=== PATIENT | female | born 1960 | race Caucasian/White ===

== ENCOUNTER 2017-06-10 12:30 | Inpatient (IN) | payer BC ==
[~2017-06-10] VITALS: Ht 157.5 cm; Wt 80.6 kg
[~2017-06-10 12:30] MED LIST: ARIP10TA15 PO; DULA0.75 SQ; FLUO40CA10 PO; FLUT100D2 INH; GLYB5TAB7 PO; LISI-600 PO; LOVA20TA2 PO; METF500T PO; NITR0.4T51 SL; OMEP40CA37 PO; SITA100T11 PO
[2017-06-10] MEDS ORDERED: NAPR-1154 PO (13:25)
[2017-06-10] MEDS ORDERED: ALBU18HF2 INH (13:25)
[2017-06-10] MEDS ORDERED: NYST30CR2 TP (13:25)
[2017-06-10 14:16] LABS: BASOPHILS % (AUTO) 0.4 % (0-1); EOSINOPHILS # (AUTO) 0.3 X10'3 (0-0.9); EOSINOPHILS % (AUTO) 3.6 % (0-6); LYMPHOCYTES # (AUTO) 1.8 X10'3 (1.1-4.8); LYMPHOCYTES % (AUTO) 22.3 % (21-51); MEAN CORPUSCULAR HEMOGLOBIN 24.5 PG (27.0-31.0); MEAN CORPUSCULAR HGB CONC 33.5 % (33.0-36.5); MEAN CORPUSCULAR VOLUME 73.2 FL (78-98); MEAN PLATELET VOLUME 8.8 FL (7.4-10.4); MONOCYTES # (AUTO) 0.4 X10'3 (0-0.9); MONOCYTES % (AUTO) 5.2 % (2-12); NEUTROPHILS # (AUTO) 5.6 X10'3 (1.8-7.7); NEUTROPHILS % (AUTO) 68.5 % (42-75); PRE OP HEMATOCRIT 32.2 % (35.0-45.0); PRE OP PLATELET COUNT 393 X10'3 (140-440); RED CELL DISTRIBUTION WIDTH 15.8 % (11.5-14.5)
[2017-06-10 14:27] LABS: PRE OP INR 0.9 INR; PRE OP PROTIME 9.4 SECONDS (9.0-12.0)
[2017-06-10 14:31] LABS: ALBUMIN 3.7 G/DL (3.4-5.0); ALBUMIN/GLOBULIN RATIO 0.8 (1.1-1.5); ALKALINE PHOSPHATASE 71 IU/L (46-116); BLOOD UREA NITROGEN 14 MG/DL (7-18); CHLORIDE 100 MMOL/L (99-107); PRE OP ALT 30 U/L (30-65); PRE OP ANION GAP 11 (8-16); PRE OP AST 15 U/L (10-37); PRE OP BILIRUB, TOTAL 0.2 MG/DL (0.0-1.0); PRE OP POTASSIUM 3.9 MMOL/L (3.4-5.1); PRE OP SODIUM 139 MMOL/L (135-145); TOTAL CARBON DIOXIDE 28.3 MMOL/L (24-32); TOTAL PROTEIN 8.1 G/DL (6.4-8.2); eGFR 86 ML/MIN
[2017-06-10 14:34] LABS: PRE OP GLUCOSE 217 MG/DL (70-104)
[2017-06-10 14:36] LABS: ABG BASE EXCESS -0.4 mmol/L (-2.0-3.0); ABG HCO3 24.6 mmol/L (22.0-26.0); ABG OXYGEN SATURATION 55.6 % (95-98); ABG PCO2 (T) 41.6 mmHg (32.0-45.0); ABG PH (T) 7.389 (7.350-7.450); ABG PO2 (T) 32.9 mmHg (83-108); ALLEN'S TEST Positive; FCOHb 0.9 % (0.5-1.5); FMetHb 0.3 % (0.3-1.12); FO2Hb 54.9 % (94-100); TOTAL HEMOGLOBIN 11.1 G/dl (12.0-16.0)
[2017-06-10 14:36] LABS: ABG BASE EXCESS -0.9 mmol/L (-2.0-3.0); ABG HCO3 22.8 mmol/L (22.0-26.0); ABG OXYGEN SATURATION 95.5 % (95-98); ABG PCO2 (T) 34.7 mmHg (32.0-45.0); ABG PH (T) 7.436 (7.350-7.450); ABG PO2 (T) 87.6 mmHg (83-108); ALLEN'S TEST Positive; FCOHb 0.6 % (0.5-1.5); FMetHb 0.3 % (0.3-1.12); FO2Hb 94.6 % (94-100); TOTAL HEMOGLOBIN 11.3 G/dl (12.0-16.0)
[2017-06-10 14:48] LABS: PRE OP HEMOGLOBIN 10.8 g/dL (12.0-16.0)
[2017-06-10 14:58] LABS: CLARITY,URINE CLEAR (Clear); COLOR,URINE STRAW (Yellow); GLUCOSE, URINE NEGATIVE (Neg); KETONES,URINE NEGATIVE (Neg); LEUKOCYTE ESTERASE ,URINE NEGATIVE (Neg); NITRITES, URINE NEGATIVE (Neg); OCCULT BLOOD,URINE NEGATIVE (Neg); PH,URINE 5.5 (4.8-8.0); PROTEIN,URINE NEGATIVE (Neg); UROBILINOGEN,URINE 0.2 E.U/dL (0.2-1.0)
[2017-06-10 15:09] LABS: UA COLLECTION TYPE CLN CATCH MIDSTREAM
[2017-06-11] MEDS ORDERED: METO25TA6 PO (12:02)
[2017-06-12] VITALS (12 sets, daily range): BP systolic 128–172; BP diastolic 64–102
[2017-06-12] MEDS ORDERED: ringers solution, lacted 1,000 ML IV SCH (05:00)
[2017-06-12] MEDS ORDERED: LORazepam 2 mg/ml vial IV ONE (05:30)
[2017-06-12] MEDS ORDERED: famotidine 20mg tablet PO ONE (05:30)
[2017-06-12] MEDS ORDERED: DOCUMENT DATE & TIME OF BETA-BLOCKER PO ONE (05:30)
[2017-06-12] MEDS ORDERED: ceFAZolin 2gm in dextrose, iso 100 ML IV ONE (05:30)
[2017-06-12] MEDS ORDERED: metoprolol tartrate 12.5mg (1/2 tablet) PO ONE (05:30)
[2017-06-12] MEDS ORDERED: dextrose 50%-water 50ml dispensing syringe IV PRN ×2 (05:30→15:40)
[2017-06-12] MEDS ORDERED: vancomycin inj 1,500 MG in normal saline 300ml IV soln IV ONE (05:30)
[2017-06-12] MEDS: insulin regular, human 100 UNITS in normal saline 100ml IV soln 99 ML IV SCH ×6 (05:30→18:10)
[2017-06-12] MEDS ORDERED: mupirocin 2% ointment 22GM TP SCH (05:30)
[2017-06-12] MEDS ORDERED: phenylephrine 10mg/ml inj IV ONE ×2 (08:00→17:22)
[2017-06-12] MEDS ORDERED: MAGNESIUM SULFATE 4 MEQ/ML (1gm/2ml) injection ONE (08:00)
[2017-06-12] MEDS ORDERED: calcium chloride 100 MG/1 ML inj IV ONE (08:00)
[2017-06-12] MEDS ORDERED: heparin 10,000 units/1 ML INJ ONE ×2 (08:00)
[2017-06-12] MEDS ORDERED: sodium bicarbonate (8.4%) 1 mEq/ml syringe ONE (08:00)
[2017-06-12] MEDS ORDERED: papaverine 30 mg/ml 2ml inj. ONE (08:00)
[2017-06-12] MEDS ORDERED: albumin (human) 25% 100 ML IV solution IV ONE (08:00)
[2017-06-12] MEDS ORDERED: heparin 1,000 units/ml 10ml inj ONE (08:00)
[2017-06-12] MEDS ORDERED: potassium acetate 2 mEq/1ml inj. IV ONE (08:00)
[2017-06-12] MEDS ORDERED: LIDOcaine 2% (20 mg/ml) 5ml cardiac syringe ONE (08:00)
[2017-06-12] MEDS ORDERED: LIDOcaine 1% (10mg/ml) 2ml vial ONE (09:58)
[2017-06-12] MEDS ORDERED: heparin 10,000 units/1 ML INJ IR ONE (10:38)
[2017-06-12] MEDS ORDERED: papaverine 30 mg/ml 2ml inj. IA ONE (10:39)
[2017-06-12] MEDS ORDERED: HYDROcodone/acetaminophen 10/325mg tab PO ONE (11:00)
[2017-06-12] MEDS ORDERED: protamine sulf. 10mg/ml inj. IV ONE (12:57)
[2017-06-12] MEDS ORDERED: isoflurane 100ml inhalation liquid IH ONE (12:57)
[2017-06-12] MEDS ORDERED: nitroGLYCERIN in D5W 50mg/250ml (Tridil) infusion IV ONE (12:57)
[2017-06-12] MEDS ORDERED: DOPamine/D5W 400mg/250ml bag IV ONE (12:57)
[2017-06-12] MEDS ORDERED: SUFENTANIL CITRATE 50 MCG/ML 2ml ampule IV ONE (13:01)
[2017-06-12] MEDS ORDERED: MIDAZolam 1mg/ml 10ml vial ONE (13:01)
[2017-06-12 13:45] LABS: ABG BASE EXCESS -2.3 mmol/L (-2.0-3.0); ABG HCO3 21.1 mmol/L (22.0-26.0); ABG OXYGEN SATURATION 98.7 % (95-98); ABG PO2 302.2 mmHg (60.0-100.0); CL (ABG) 104 mmol/L (99-107); FCOHb 0.3 % (0.5-1.5); FMetHb 0.3 % (0.3-1.12); FO2Hb 98.1 % (94-100); GLUCOSE (ABG) 148 mg/dl (70-105); IONIZED CA (ABG) 1.11 mmol/L (1.03-1.32); K (ABG) 3.7 mmol/L (3.3-5.1); NA (ABG) 136 mmol/L (135-145); TOTAL HEMOGLOBIN 9.5 G/dl (12.0-16.0)
[2017-06-12] MEDS ORDERED: tranexamic acid inj. 790 MG in normal saline 100ml IV soln 100 ML IV ONE (13:50)
[2017-06-12] MEDS ORDERED: methylPREDNISolone sod succ 1000mg vial IV ONE (13:50)
[2017-06-12 14:45] LABS: ABG HCO3 24.4 mmol/L (22.0-26.0); ABG OXYGEN SATURATION 98.7 % (95-98); ABG PCO2 38.1 mmHg (35.0-45.0); ABG PH 7.424 (7.350-7.450); ABG PO2 495.6 mmHg (60.0-100.0); CL (ABG) 101 mmol/L (99-107); FCOHb 0.3 % (0.5-1.5); FMetHb 0.2 % (0.3-1.12); FO2Hb 98.2 % (94-100); GLUCOSE (ABG) 111 mg/dl (70-105); IONIZED CA (ABG) 0.94 mmol/L (1.03-1.32); K (ABG) 3.5 mmol/L (3.3-5.1); NA (ABG) 134 mmol/L (135-145)
[2017-06-12 15:05] LABS: ABG BASE EXCESS VENOUS -1.1 mmol/L; ABG HCO3 VENOUS 24.7 mmol/L; ABG PCO2 VENOUS 46.6 mmHg; ABG PO2 VENOUS 50.2 mmHg; CL (ABG) 104 mmol/L (99-107); FCOHb VENOUS 0.6 %; FHHb VENOUS 16.6 %; FMetHb VENOUS 0.1 %; FO2Hb VENOUS 82.7 %; GLUCOSE (ABG) 158 mg/dl (70-105); IONIZED CA (ABG) 1.04 mmol/L (1.03-1.32); K (ABG) 4.6 mmol/L (3.3-5.1); NA (ABG) 134 mmol/L (135-145); TOTAL HEMOGLOBIN 8.8 G/dl (12.0-16.0)
[2017-06-12] MEDS ORDERED: ipratropium/albuterol 3ml nebule IH PRN (15:10)
[2017-06-12] MEDS ORDERED: DOPamine 400mg/D5W 250ml 250 ML IV PRN (15:37)
[2017-06-12] MEDS ORDERED: sodium phosphate inj. 15 MMOL in dextrose 5%-water 150 ML IV PRN (15:40)
[2017-06-12] MEDS ORDERED: magnesium 4gm in 100ml NS 100 ML IV PRN (15:40)
[2017-06-12] MEDS ORDERED: magnesium 2GM in 50ml NS 50 ML IV PRN (15:40)
[2017-06-12] MEDS ORDERED: ondansetron/PF 4mg/2ml inj IV PRN (15:40)
[2017-06-12] MEDS ORDERED: metoclopramide 5 mg/ml inj IV PRN (15:40)
[2017-06-12] MEDS ORDERED: insulin regular, human inj. 100 UNITS in normal saline 100ml IV soln 100 ML IV SCH ×2 (15:40)
[2017-06-12] MEDS ORDERED: sodium phosphate inj. 30 MMOL in dextrose 5%-water 250 ML IV PRN (15:40)
[2017-06-12] MEDS ORDERED: albumin (Human) 5% 250ml 250 ML IV PRN (15:40)
[2017-06-12] MEDS ORDERED: Neutra Phos packet PO PRN (15:40)
[2017-06-12] MEDS ORDERED: normal saline 250ml IV soln 250 ML IV PRN (15:40)
[2017-06-12] MEDS ORDERED: potassium Cl 20mEq/100mL bag 100 ML IV PRN ×2 (15:40)
[2017-06-12] MEDS ORDERED: magnesium hydroxide 30ml (MOM) UD suspension PO PRN (15:40)
[2017-06-12] MEDS ORDERED: acetaminophen 325mg tablet PO PRN (15:40)
[2017-06-12 15:41] LABS: ABG BASE EXCESS 1.4 mmol/L (-2.0-3.0); ABG HCO3 25.7 mmol/L (22.0-26.0); ABG OXYGEN SATURATION 98.8 % (95-98); ABG PCO2 39.2 mmHg (35.0-45.0); ABG PH 7.435 (7.350-7.450); ABG PO2 468.2 mmHg (60.0-100.0); CL (ABG) 103 mmol/L (99-107); FCOHb 0.2 % (0.5-1.5); FMetHb 0.1 % (0.3-1.12); FO2Hb 98.5 % (94-100); GLUCOSE (ABG) 145 mg/dl (70-105); IONIZED CA (ABG) 1.41 mmol/L (1.03-1.32); NA (ABG) 135 mmol/L (135-145); TOTAL HEMOGLOBIN 7.9 G/dl (12.0-16.0)
[2017-06-12] MEDS ORDERED: albuterol 2.5 MG/3 ML nebule NEB PRN (16:00)
[2017-06-12 16:10] LABS: ABG HCO3 24.4 mmol/L (22.0-26.0); ABG OXYGEN SATURATION 94.7 % (95-98); ABG PCO2 38.4 mmHg (35.0-45.0); ABG PH 7.421 (7.350-7.450); ABG PO2 77.7 mmHg (60.0-100.0); CL (ABG) 105 mmol/L (99-107); FCOHb 0.8 % (0.5-1.5); FMetHb 0.3 % (0.3-1.12); FO2Hb 93.7 % (94-100); GLUCOSE (ABG) 205 mg/dl (70-105); K (ABG) 4.1 mmol/L (3.3-5.1); NA (ABG) 138 mmol/L (135-145); TOTAL HEMOGLOBIN 8.5 G/dl (12.0-16.0)
[2017-06-12] MEDS ORDERED: etomidate 2mg/ml inj. ONE (17:22)
[2017-06-12] MEDS ORDERED: rocuronium 10mg/ml inj IV ONE (17:22)
[2017-06-12] MEDS ORDERED: LIDOcaine 2% (20mg/ml) 5ml vial ONE (17:22)
[2017-06-12] MEDS ORDERED: succinylcholine 20mg/ml inj IV ONE (17:22)
[2017-06-12] MEDS ORDERED: albuterol 60 PUFF/8GM Inhaler IH ONE (17:22)
[2017-06-12 17:32] LABS: BASOPHILS % (AUTO) 0.2 % (0-1); EOSINOPHILS # (AUTO) 0.4 X10'3 (0-0.9); EOSINOPHILS % (AUTO) 1.9 % (0-6); HEMATOCRIT 35.1 % (35.0-45.0); HEMOGLOBIN 11.6 g/dl (12.0-16.0); LYMPHOCYTES # (AUTO) 2.1 X10'3 (1.1-4.8); LYMPHOCYTES % (AUTO) 11.3 % (21-51); MEAN CORPUSCULAR HEMOGLOBIN 25.3 PG (27.0-31.0); MEAN CORPUSCULAR HGB CONC 32.9 % (33.0-36.5); MEAN CORPUSCULAR VOLUME 76.7 FL (78-98); MEAN PLATELET VOLUME 8.1 FL (7.4-10.4); MONOCYTES # (AUTO) 0.7 X10'3 (0-0.9); NEUTROPHILS # (AUTO) 15.4 X10'3 (1.8-7.7); NEUTROPHILS % (AUTO) 82.6 % (42-75); PLATELET COUNT 246 X10'3 (140-440); RED BLOOD COUNT 4.58 X10'6 (4.20-5.60); RED CELL DISTRIBUTION WIDTH 17.1 % (11.5-14.5); WHITE BLOOD COUNT 18.6 X10'3 (4.5-11.0)
[2017-06-12 17:34] LABS: PARTIAL THROMBOPLASTIN TIME 23 SECONDS (22-32); PROTHROMBIN TIME 10.6 SECONDS (9.0-12.0)
[2017-06-12 17:38] LABS: ALANINE AMINOTRANSFERASE 35 U/L (12-78); ALBUMIN 2.9 G/DL (3.4-5.0); ALBUMIN/GLOBULIN RATIO 1.1 (1.1-1.5); ALKALINE PHOSPHATASE 46 IU/L (46-116); ANION GAP 12 (8-16); ASPARTATE AMINO TRANSFERASE 39 U/L (10-37); BILIRUBIN,TOTAL 0.5 MG/DL (0.1-1.0); BLOOD UREA NITROGEN 10 MG/DL (7-18); BUN/CREATININE RATIO 11.9 (6.6-38.0); CALCIUM 8.5 MG/DL (8.5-10.1); CHLORIDE 106 MMOL/L (99-107); CREATININE 0.84 MG/DL (0.40-0.90); GLUCOSE 251 MG/DL (70-104); MAGNESIUM 3.3 MG/DL (1.5-2.4); PHOSPHORUS 3.5 MG/DL (2.3-4.5); POTASSIUM 3.7 MMOL/L (3.5-5.1); SODIUM 143 MMOL/L (135-145); TOTAL CARBON DIOXIDE 25.2 MMOL/L (24-32); TOTAL PROTEIN 5.6 G/DL (6.4-8.2); eGFR 69 ML/MIN
[2017-06-12] MEDS: insulin Lispro (HumaLOG) vial - multi-dose SQ SCH (18:00)
[2017-06-12] MEDS: ceFAZolin 1GM/D5W- ADD-VANTAGE 50 ML IV SCH (18:12)
[2017-06-12] MEDS: niCARDipine/sod cl 20mg/200ml 200 ML IV PRN (18:13)
[2017-06-12] MEDS: sodium chloride 0.45% 1,000 ML IV SCH (18:13)
[2017-06-12] MEDS: morphine 4 MG/ML inj SYRINge IV PRN ×2 (18:24→21:44)
[2017-06-12] MEDS: potassium Cl 20mEq/100mL bag 100 ML IV PRN ×2 (19:25→20:05)
[2017-06-12] MEDS: NYSTATIN CREAM - 30GM TUBE TP SCH (20:00)
[2017-06-12] MEDS: docusate sod 100mg capsule PO SCH (20:00)
[2017-06-12] MEDS: vancomycin/NS 1 GM ADD-VANTAGE 250 ML IV SCH (20:03)
[2017-06-12] MEDS: mupirocin 2% ointment 22GM NS SCH (20:03)
[2017-06-12 22:34] LABS: BASOPHILS % (AUTO) 0 % (0-1); EOSINOPHILS # (AUTO) 0.3 X10'3 (0-0.9); EOSINOPHILS % (AUTO) 1.9 % (0-6); HEMATOCRIT 36.9 % (35.0-45.0); HEMOGLOBIN 12.3 g/dl (12.0-16.0); LYMPHOCYTES # (AUTO) 0.8 X10'3 (1.1-4.8); LYMPHOCYTES % (AUTO) 4.7 % (21-51); MEAN CORPUSCULAR HEMOGLOBIN 25.3 PG (27.0-31.0); MEAN CORPUSCULAR HGB CONC 33.2 % (33.0-36.5); MEAN CORPUSCULAR VOLUME 76.3 FL (78-98); MEAN PLATELET VOLUME 8.4 FL (7.4-10.4); MONOCYTES # (AUTO) 0.5 X10'3 (0-0.9); MONOCYTES % (AUTO) 2.8 % (2-12); NEUTROPHILS # (AUTO) 14.6 X10'3 (1.8-7.7); NEUTROPHILS % (AUTO) 90.6 % (42-75); PLATELET COUNT 260 X10'3 (140-440); RED BLOOD COUNT 4.83 X10'6 (4.20-5.60); RED CELL DISTRIBUTION WIDTH 17.2 % (11.5-14.5); WHITE BLOOD COUNT 16.1 X10'3 (4.5-11.0)
[2017-06-12 22:44] LABS: ALBUMIN 3.2 G/DL (3.4-5.0); ANION GAP 14 (8-16); BLOOD UREA NITROGEN 11 MG/DL (7-18); BUN/CREATININE RATIO 12.8 (6.6-38.0); CALCIUM 8.4 MG/DL (8.5-10.1); CHLORIDE 107 MMOL/L (99-107); CREATININE 0.86 MG/DL (0.40-0.90); GLUCOSE 212 MG/DL (70-104); MAGNESIUM 2.4 MG/DL (1.5-2.4); POTASSIUM 3.8 MMOL/L (3.5-5.1); SODIUM 143 MMOL/L (135-145); TOTAL CARBON DIOXIDE 21.9 MMOL/L (24-32); eGFR 68 ML/MIN
[2017-06-13] VITALS (24 sets, daily range): BP systolic 105–170; BP diastolic 65–101
[2017-06-13] MEDS: potassium Cl 20mEq/100mL bag 100 ML IV PRN ×3 (00:23→05:53)
[2017-06-13] MEDS: ceFAZolin 1GM/D5W- ADD-VANTAGE 50 ML IV SCH ×3 (00:23→15:07)
[2017-06-13] MEDS: insulin regular, human 100 UNITS in normal saline 100ml IV soln 99 ML IV SCH ×2 (01:17)
[2017-06-13 01:21] LABS: ABG BASE EXCESS -2.2 mmol/L (-2.0-3.0); ABG OXYGEN SATURATION 92.1 % (95-98); ABG PCO2 (T) 31.4 mmHg (32.0-45.0); ABG PH (T) 7.443 (7.350-7.450); ABG PO2 (T) 63.9 mmHg (83-108); FCOHb 0.4 % (0.5-1.5); FMetHb 0.3 % (0.3-1.12); FO2Hb 91.5 % (94-100); MINUTE VOLUME 11 L/min; PEEP 5 cm H2O; TOTAL HEMOGLOBIN 12.6 G/dl (12.0-16.0)
[2017-06-13] MEDS: morphine 4 MG/ML inj SYRINge IV PRN ×2 (01:34→04:50)
[2017-06-13] MEDS: HYDROcodone/acetaminophen 10/325mg tab PO PRN ×5 (01:47→20:43)
[2017-06-13 04:08] LABS: BASOPHILS % (AUTO) 0 % (0-1); EOSINOPHILS # (AUTO) 0.2 X10'3 (0-0.9); EOSINOPHILS % (AUTO) 1.6 % (0-6); HEMATOCRIT 36.4 % (35.0-45.0); HEMOGLOBIN 12.2 g/dl (12.0-16.0); LYMPHOCYTES # (AUTO) 0.8 X10'3 (1.1-4.8); LYMPHOCYTES % (AUTO) 5.6 % (21-51); MEAN CORPUSCULAR HEMOGLOBIN 25.6 PG (27.0-31.0); MEAN CORPUSCULAR HGB CONC 33.5 % (33.0-36.5); MEAN CORPUSCULAR VOLUME 76.4 FL (78-98); MEAN PLATELET VOLUME 8.5 FL (7.4-10.4); MONOCYTES # (AUTO) 0.8 X10'3 (0-0.9); MONOCYTES % (AUTO) 5.1 % (2-12); NEUTROPHILS # (AUTO) 13.4 X10'3 (1.8-7.7); NEUTROPHILS % (AUTO) 87.7 % (42-75); PLATELET COUNT 250 X10'3 (140-440); RED BLOOD COUNT 4.77 X10'6 (4.20-5.60); WHITE BLOOD COUNT 15.3 X10'3 (4.5-11.0)
[2017-06-13 04:19] LABS: PARTIAL THROMBOPLASTIN TIME 23 SECONDS (22-32)
[2017-06-13 04:25] LABS: ALANINE AMINOTRANSFERASE 48 U/L (12-78); ALBUMIN 3.1 G/DL (3.4-5.0); ALBUMIN/GLOBULIN RATIO 0.9 (1.1-1.5); ALKALINE PHOSPHATASE 46 IU/L (46-116); ANION GAP 12 (8-16); ASPARTATE AMINO TRANSFERASE 44 U/L (10-37); BILIRUBIN,TOTAL 0.3 MG/DL (0.1-1.0); BLOOD UREA NITROGEN 11 MG/DL (7-18); BUN/CREATININE RATIO 15.7 (6.6-38.0); CALCIUM 8.3 MG/DL (8.5-10.1); CHLORIDE 106 MMOL/L (99-107); GLUCOSE 149 MG/DL (70-104); PHOSPHORUS 2.6 MG/DL (2.3-4.5); POTASSIUM 3.9 MMOL/L (3.5-5.1); SODIUM 141 MMOL/L (135-145); TOTAL CARBON DIOXIDE 23.5 MMOL/L (24-32); TOTAL PROTEIN 6.4 G/DL (6.4-8.2); eGFR 86 ML/MIN
[2017-06-13] MEDS: niCARDipine/sod cl 20mg/200ml 200 ML IV PRN (04:49)
[2017-06-13] MEDS: docusate sod 100mg capsule PO SCH ×2 (07:24→20:42)
[2017-06-13] MEDS: atorvastatin 10mg tablet PO SCH (07:24)
[2017-06-13] MEDS: pantoprazole 40mg Tablet.DR PO SCH (07:24)
[2017-06-13] MEDS: aripiprazole 5mg tablet PO SCH (07:24)
[2017-06-13] MEDS: aspirin 325mg tablet, delayed-release (Ecotrin) PO SCH (07:25)
[2017-06-13] MEDS: vancomycin/NS 1 GM ADD-VANTAGE 250 ML IV SCH ×2 (07:25→20:42)
[2017-06-13] MEDS: mupirocin 2% ointment 22GM NS SCH ×2 (07:25→20:00)
[2017-06-13] MEDS: nitroGLYCERIN-Tridil 50MG/D5W 250 ML IV PRN (07:26)
[2017-06-13] MEDS ORDERED: metoprolol tartrate 12.5mg (1/2 tablet) PO SCH (08:00)
[2017-06-13] MEDS: NYSTATIN CREAM - 30GM TUBE TP SCH ×2 (08:24→20:00)
[2017-06-13] MEDS: FLUoxetine 20mg capsule PO SCH (08:24)
[2017-06-13] MEDS: insulin Lispro (HumaLOG) vial - multi-dose SQ SCH ×3 (09:29→22:30)
[2017-06-13 09:42] LABS: MAGNESIUM 2.5 MG/DL (1.5-2.4); POTASSIUM 4.5 MMOL/L (3.5-5.1)
[2017-06-13] MEDS: fluticasone furoate 100MCG/puff inhaler IH SCH (10:30)
[2017-06-13] MEDS ORDERED: dextrose ORAL solution 15 GM/59 ML bottle PO PRN ×2 (10:35)
[2017-06-13] MEDS ORDERED: glucagon, human recombinant 1mg kit SUBCUT PRN (10:35)
[2017-06-13] MEDS ORDERED: MESSAGE TO PHARMACY PO ONE (10:35)
[2017-06-13] MEDS ORDERED: dextrose 50%-water 50ml dispensing syringe IV PRN ×2 (10:35)
[2017-06-13] MEDS: calcium carbonate 500mg chew tablet PO PRN (18:16)
[2017-06-13] MEDS: metoprolol tartrate 25mg tablet PO SCH (20:42)
[2017-06-13] MEDS: lactobacillus rhamnosus 10,000 MMU CELLS/CAPSULE PO SCH (20:42)
[2017-06-13] MEDS: insulin glargine (Lantus) pen - multi-dose SQ SCH (22:31)
[2017-06-14] VITALS (24 sets, daily range): BP systolic 106–169; BP diastolic 62–95
[2017-06-14] MEDS: ceFAZolin 1GM/D5W- ADD-VANTAGE 50 ML IV SCH (00:53)
[2017-06-14] MEDS: HYDROcodone/acetaminophen 10/325mg tab PO PRN ×6 (00:53→22:06)
[2017-06-14 02:30] LABS: BASOPHILS % (AUTO) 0.2 % (0-1); EOSINOPHILS # (AUTO) 0.3 X10'3 (0-0.9); EOSINOPHILS % (AUTO) 1.5 % (0-6); HEMATOCRIT 34.3 % (35.0-45.0); HEMOGLOBIN 11.3 g/dl (12.0-16.0); LYMPHOCYTES # (AUTO) 1.1 X10'3 (1.1-4.8); LYMPHOCYTES % (AUTO) 6.2 % (21-51); MEAN CORPUSCULAR HEMOGLOBIN 25.6 PG (27.0-31.0); MEAN CORPUSCULAR VOLUME 77.6 FL (78-98); MEAN PLATELET VOLUME 8.4 FL (7.4-10.4); MONOCYTES # (AUTO) 1.1 X10'3 (0-0.9); MONOCYTES % (AUTO) 6.2 % (2-12); NEUTROPHILS # (AUTO) 14.7 X10'3 (1.8-7.7); NEUTROPHILS % (AUTO) 85.9 % (42-75); PLATELET COUNT 239 X10'3 (140-440); RED BLOOD COUNT 4.41 X10'6 (4.20-5.60); RED CELL DISTRIBUTION WIDTH 17.5 % (11.5-14.5); WHITE BLOOD COUNT 17.1 X10'3 (4.5-11.0)
[2017-06-14 02:44] LABS: ALBUMIN 2.9 G/DL (3.4-5.0); ANION GAP 8 (8-16); BLOOD UREA NITROGEN 12 MG/DL (7-18); BUN/CREATININE RATIO 15.8 (6.6-38.0); CALCIUM 8.5 MG/DL (8.5-10.1); CHLORIDE 99 MMOL/L (99-107); CREATININE 0.76 MG/DL (0.40-0.90); GLUCOSE 308 MG/DL (70-104); MAGNESIUM 2.2 MG/DL (1.5-2.4); PHOSPHORUS 3.9 MG/DL (2.3-4.5); POTASSIUM 5.1 MMOL/L (3.5-5.1); SODIUM 135 MMOL/L (135-145); TOTAL CARBON DIOXIDE 28.3 MMOL/L (24-32); eGFR 78 ML/MIN
[2017-06-14] MEDS: atorvastatin 10mg tablet PO SCH (07:37)
[2017-06-14] MEDS: aspirin 325mg tablet, delayed-release (Ecotrin) PO SCH (07:37)
[2017-06-14] MEDS: lactobacillus rhamnosus 10,000 MMU CELLS/CAPSULE PO SCH ×2 (07:37→20:56)
[2017-06-14] MEDS: metoprolol tartrate 25mg tablet PO SCH ×2 (07:37→20:56)
[2017-06-14] MEDS: docusate sod 100mg capsule PO SCH ×2 (07:37→20:56)
[2017-06-14] MEDS: pantoprazole 40mg Tablet.DR PO SCH (07:37)
[2017-06-14] MEDS: aripiprazole 5mg tablet PO SCH (07:37)
[2017-06-14] MEDS: NYSTATIN CREAM - 30GM TUBE TP SCH ×2 (07:39→20:56)
[2017-06-14] MEDS: FLUoxetine 20mg capsule PO SCH (07:42)
[2017-06-14] MEDS: mupirocin 2% ointment 22GM NS SCH (07:42)
[2017-06-14] MEDS: fluticasone furoate 100MCG/puff inhaler IH SCH (08:00)
[2017-06-14] MEDS: nitroGLYCERIN-Tridil 50MG/D5W 250 ML IV PRN (08:37)
[2017-06-14] MEDS: insulin Lispro (HumaLOG) vial - multi-dose SQ SCH ×3 (09:14→20:02)
[2017-06-14] MEDS: calcium carbonate 500mg chew tablet PO PRN ×2 (09:18→13:45)
[2017-06-14] MEDS: sodium chloride 0.45% 1,000 ML IV SCH (16:03)
[2017-06-14] MEDS: metFORMIN 500mg tablet PO SCH (17:10)
[2017-06-14] MEDS: morphine 4 MG/ML inj SYRINge IV PRN (19:51)
[2017-06-14] MEDS ORDERED: lisinopril 10 MG tablet PO SCH (21:00)
[2017-06-14] MEDS: insulin glargine (Lantus) pen - multi-dose SQ SCH (22:15)
[2017-06-15] VITALS (14 sets, daily range): BP systolic 99–138; BP diastolic 64–84
[2017-06-15 01:23] LABS: ALBUMIN 2.9 G/DL (3.4-5.0); ANION GAP 9 (8-16); BLOOD UREA NITROGEN 14 MG/DL (7-18); BUN/CREATININE RATIO 24.6 (6.6-38.0); CALCIUM 8.9 MG/DL (8.5-10.1); CHLORIDE 101 MMOL/L (99-107); CREATININE 0.57 MG/DL (0.40-0.90); GLUCOSE 143 MG/DL (70-104); MAGNESIUM 1.9 MG/DL (1.5-2.4); SODIUM 140 MMOL/L (135-145); TOTAL CARBON DIOXIDE 29.7 MMOL/L (24-32); eGFR > 90 ML/MIN
[2017-06-15 01:58] LABS: BASOPHILS % (AUTO) 0.2 % (0-1); EOSINOPHILS # (AUTO) 0.2 X10'3 (0-0.9); EOSINOPHILS % (AUTO) 1.4 % (0-6); HEMATOCRIT 35.7 % (35.0-45.0); HEMOGLOBIN 11.8 g/dl (12.0-16.0); LYMPHOCYTES # (AUTO) 2.9 X10'3 (1.1-4.8); LYMPHOCYTES % (AUTO) 19.7 % (21-51); MEAN CORPUSCULAR HEMOGLOBIN 25.7 PG (27.0-31.0); MEAN CORPUSCULAR VOLUME 77.9 FL (78-98); MEAN PLATELET VOLUME 8.8 FL (7.4-10.4); MONOCYTES # (AUTO) 1.2 X10'3 (0-0.9); MONOCYTES % (AUTO) 7.9 % (2-12); NEUTROPHILS # (AUTO) 10.3 X10'3 (1.8-7.7); NEUTROPHILS % (AUTO) 70.8 % (42-75); PLATELET COUNT 242 X10'3 (140-440); RED BLOOD COUNT 4.58 X10'6 (4.20-5.60); RED CELL DISTRIBUTION WIDTH 17.3 % (11.5-14.5); WHITE BLOOD COUNT 14.6 X10'3 (4.5-11.0)
[2017-06-15] MEDS: pantoprazole 40mg Tablet.DR PO SCH (06:45)
[2017-06-15] MEDS: metFORMIN 500mg tablet PO SCH ×2 (06:45→16:57)
[2017-06-15] MEDS: HYDROcodone/acetaminophen 10/325mg tab PO PRN ×4 (06:46→22:53)
[2017-06-15] MEDS: metoprolol tartrate 25mg tablet PO SCH ×2 (08:07→18:42)
[2017-06-15] MEDS: lactobacillus rhamnosus 10,000 MMU CELLS/CAPSULE PO SCH ×2 (08:07→18:42)
[2017-06-15] MEDS: atorvastatin 10mg tablet PO SCH (08:07)
[2017-06-15] MEDS: aripiprazole 5mg tablet PO SCH (08:08)
[2017-06-15] MEDS: docusate sod 100mg capsule PO SCH ×2 (08:08→18:42)
[2017-06-15] MEDS: NYSTATIN CREAM - 30GM TUBE TP SCH ×2 (08:08→21:07)
[2017-06-15] MEDS: aspirin 325mg tablet, delayed-release (Ecotrin) PO SCH (08:08)
[2017-06-15] MEDS: FLUoxetine 20mg capsule PO SCH (08:08)
[2017-06-15] MEDS: insulin Lispro (HumaLOG) vial - multi-dose SQ SCH ×3 (08:49→19:10)
[2017-06-15] MEDS ORDERED: potassium Cl 40MEQ/NS 500ml 500 ML IV PRN ×2 (09:50)
[2017-06-15] MEDS ORDERED: magnesium 4gm in 100ml NS 100 ML IV PRN (09:50)
[2017-06-15] MEDS ORDERED: potassium Cl 20 mEq SR tablet PO PRN ×2 (09:50)
[2017-06-15] MEDS ORDERED: magnesium Cl slow-release 64mg tablet PO PRN (09:50)
[2017-06-15] MEDS ORDERED: magnesium 2GM in 50ml NS 50 ML IV PRN (09:50)
[2017-06-15] MEDS: magnesium Cl slow-release 64mg tablet PO SCH (18:42)
[2017-06-15] MEDS: potassium Cl 20 mEq SR tablet PO SCH (18:42)
[2017-06-15] MEDS ORDERED: lisinopril 5mg tablet PO SCH (21:00)
[2017-06-15] MEDS: insulin glargine (Lantus) pen - multi-dose SQ SCH (21:12)
[2017-06-16 03:00] VITALS: BP 117/66
[2017-06-16] MEDS: HYDROcodone/acetaminophen 10/325mg tab PO PRN ×3 (04:29→13:16)
[2017-06-16 05:16] LABS: BASOPHILS % (AUTO) 0.4 % (0-1); EOSINOPHILS # (AUTO) 0.2 X10'3 (0-0.9); EOSINOPHILS % (AUTO) 2.3 % (0-6); HEMATOCRIT 36.5 % (35.0-45.0); HEMOGLOBIN 12.1 g/dl (12.0-16.0); LYMPHOCYTES # (AUTO) 2.5 X10'3 (1.1-4.8); LYMPHOCYTES % (AUTO) 23.6 % (21-51); MEAN CORPUSCULAR HEMOGLOBIN 25.8 PG (27.0-31.0); MEAN CORPUSCULAR HGB CONC 33.2 % (33.0-36.5); MEAN CORPUSCULAR VOLUME 77.8 FL (78-98); MEAN PLATELET VOLUME 8.7 FL (7.4-10.4); MONOCYTES # (AUTO) 0.6 X10'3 (0-0.9); MONOCYTES % (AUTO) 5.9 % (2-12); NEUTROPHILS # (AUTO) 7.3 X10'3 (1.8-7.7); NEUTROPHILS % (AUTO) 67.8 % (42-75); PLATELET COUNT 258 X10'3 (140-440); RED BLOOD COUNT 4.69 X10'6 (4.20-5.60); RED CELL DISTRIBUTION WIDTH 17.9 % (11.5-14.5); WHITE BLOOD COUNT 10.7 X10'3 (4.5-11.0)
[2017-06-16 05:31] LABS: ACT @ 1.70 U 278 SEC (193-297); ACT @ 2.84 U 357 SEC (260-420); BASELINE ACT 141 SEC (101-148); PATIENT WEIGHT 79.0k KG
[2017-06-16 05:31] LABS: ACTIVATED CLOTTING TIME 118 SEC (101-148)
[2017-06-16 06:30] VITALS: BP 134/79
[2017-06-16 06:41] LABS: ALBUMIN 2.7 G/DL (3.4-5.0); ANION GAP 12 (8-16); BLOOD UREA NITROGEN 20 MG/DL (7-18); BUN/CREATININE RATIO 30.3 (6.6-38.0); CALCIUM 8.9 MG/DL (8.5-10.1); CHLORIDE 103 MMOL/L (99-107); CREATININE 0.66 MG/DL (0.40-0.90); GLUCOSE 244 MG/DL (70-104); POTASSIUM 4.3 MMOL/L (3.5-5.1); SODIUM 141 MMOL/L (135-145); TOTAL CARBON DIOXIDE 26.3 MMOL/L (24-32); eGFR > 90 ML/MIN
[2017-06-16] MEDS: pantoprazole 40mg Tablet.DR PO SCH (07:43)
[2017-06-16] MEDS: FLUoxetine 20mg capsule PO SCH (07:43)
[2017-06-16] MEDS: metFORMIN 500mg tablet PO SCH (07:43)
[2017-06-16] MEDS: atorvastatin 10mg tablet PO SCH (07:43)
[2017-06-16] MEDS: metoprolol tartrate 25mg tablet PO SCH (07:43)
[2017-06-16] MEDS: docusate sod 100mg capsule PO SCH (07:43)
[2017-06-16] MEDS: aspirin 325mg tablet, delayed-release (Ecotrin) PO SCH (07:43)
[2017-06-16] MEDS: magnesium Cl slow-release 64mg tablet PO SCH (07:43)
[2017-06-16] MEDS: lactobacillus rhamnosus 10,000 MMU CELLS/CAPSULE PO SCH (07:43)
[2017-06-16] MEDS: aripiprazole 5mg tablet PO SCH (07:44)
[2017-06-16] MEDS: potassium Cl 20 mEq SR tablet PO SCH (07:46)
[2017-06-16] MEDS: NYSTATIN CREAM - 30GM TUBE TP SCH (07:46)
[2017-06-16] MEDS ORDERED: K and/or MAG REPLACEMENT MC SCH (08:00)
[2017-06-16] MEDS: insulin Lispro (HumaLOG) vial - multi-dose SQ SCH (08:53)
[2017-06-16 11:00] VITALS: BP 109/73
[2017-06-16] MEDS ORDERED: LISI-604 PO (11:33)
[2017-06-16] MEDS ORDERED: ASPI-41 PO (11:33)
[2017-06-16] MEDS ORDERED: amiodarone/D5 360MG/200ML BAG 200 ML IV SCH (12:35)
[2017-06-16] MEDS ORDERED: amiodarone 150mg/dext, iso-os 100 ML IV ONE (12:35)
[2017-06-16] MEDS ORDERED: AMIO200T57 PO ×2 (12:51→13:55)
[2017-06-16] MEDS ORDERED: amiodarone 200mg tablet PO ONE (12:55)
[2017-06-16] MEDS ORDERED: verapamil 2.5 mg/ml inj IV ONE (13:30)
[2017-06-16 15:12] LABS: TOTAL HEMOGLOBIN 6.7 G/dl (12.0-16.0)
== END 2017-06-16 14:40 | disposition home health service (06) | DRG 236 ==
LOC: EDSTATUS 12:30 → PAS IN 06-12 09:33 → EDSTATUS 06-12 12:30 → CICU 2S 06-12 16:42 → PCU 3S 06-15 12:18
PROVIDERS: ADMIT Thoracic Surgery (Cardiothoracic Vascular Surgery); ATTEND Thoracic Surgery (Cardiothoracic Vascular Surgery)
PROC: 021109W Bypass Coronary Artery, Two Arteries from Aorta with Autologous Venous Tissue, Open Approach (ICD-10-PCS; 2017-06-12)
PROC: 06BP4ZZ Excision of Right Saphenous Vein, Percutaneous Endoscopic Approach (ICD-10-PCS; 2017-06-12)
PROC: 5A1221Z Performance of Cardiac Output, Continuous (ICD-10-PCS; 2017-06-12)
PROC: B24BZZ4 Ultrasonography of Heart with Aorta, Transesophageal (ICD-10-PCS; 2017-06-12)
PROC: 30233N1 Transfusion of Nonautologous Red Blood Cells into Peripheral Vein, Percutaneous Approach (ICD-10-PCS; 2017-06-12)
PROC: 02100Z9 Bypass Coronary Artery, One Artery from Left Internal Mammary, Open Approach (ICD-10-PCS; principal; 2017-06-12 12:57)
DX: I25.110 Atherosclerotic heart disease of native coronary artery with unstable angina pectoris (principal); E11.9 Type 2 diabetes mellitus without complications; E78.00 Pure hypercholesterolemia, unspecified; F31.9 Bipolar disorder, unspecified; R94.39 Abnormal result of other cardiovascular function study; I10 Essential (primary) hypertension; K58.9 Irritable bowel syndrome, unspecified; Z79.51 Long term (current) use of inhaled steroids; Z79.84 Long term (current) use of oral hypoglycemic drugs; Z79.899 Other long term (current) drug therapy; Z82.49 Family history of ischemic heart disease and other diseases of the circulatory system; Z88.0 Allergy status to penicillin; Z88.5 Allergy status to narcotic agent; Z88.6 Allergy status to analgesic agent
CPT/HCPCS: 0232T; 93312; 93325; Z7506; Z7508; 36415; 36600; 71045; 71046; 80048; 80053; 81003; 82330; 82435; 82803; 82947; 82948; 83036; 83735; 84100; 84132; 84295; 85018; 85025; 85347; 85384; 85610; 85730; 86885; 86900; 86901; 86920; 87070; 93005; 93880; 93971; 94010; 94640; 94668; 94760; 97110; 97116; 97161; 97530; A6212; A6213; A6255; A6257; A6258; A6402; A6449; A7000; A7048; C1751; J0330; J0690; J1265; J1644; J1815; J2001; J2060; J2150; J2250; J2270; J2370; J2405; J2440; J2720; J2930; J3370; J3475; J3480; J3490; J7030; J7120; P9016; P9047

== ENCOUNTER 2018-10-21 07:31 | Emergency (ER) | payer OTHER, SELFPAY ==
[~2018-10-21] VITALS: Ht 157.5 cm; Wt 79.1 kg
[~2018-10-21 07:31] MED LIST changes: +ALBU18HF2 INH; +ASPI-41 PO; -LISI-600 PO; +LISI-604 PO; +METO25TA6 PO; +NAPR-1154 PO; -NITR0.4T51 SL; +OMEP40CA13 PO; -OMEP40CA37 PO
--- NOTE | 2018-10-21 07:52 | NUR ---
pt has old injury. pain in neck. pain in back is chronic and is now going to rt hip and rt leg. numbness
[2018-10-21] MEDS ORDERED: ketorolac tromethamine 15mg/ml inj. IM ONE (08:30)
[2018-10-21] MEDS ORDERED: LORazepam 2 mg/ml vial IM ONE (08:30)
[2018-10-21 08:41] VITALS: BP 152/83
[2018-10-21] MEDS ORDERED: CYCL-1 PO (08:58)
== END 2018-10-21 09:27 | disposition home or self-care (01) ==
LOC: ER 07:32
DX: M54.41 Lumbago with sciatica, right side (principal); M54.2 Cervicalgia; G89.29 Other chronic pain; Z95.1 Presence of aortocoronary bypass graft; Z88.0 Allergy status to penicillin; Z88.5 Allergy status to narcotic agent; Z88.6 Allergy status to analgesic agent; Z79.82 Long term (current) use of aspirin; Z79.84 Long term (current) use of oral hypoglycemic drugs; Z79.899 Other long term (current) drug therapy
CPT/HCPCS: 96372; 99283; J1885; J2060

== ENCOUNTER 2019-01-13 10:52 | Emergency (ER) | payer OTHER ==
[~2019-01-13] VITALS: Ht 157.5 cm; Wt 79.0 kg
[~2019-01-13 10:52] MED LIST changes: +CYCL-1 PO
[2019-01-13 10:59] VITALS: BP 194/97
[2019-01-13] MEDS ORDERED: ketorolac tromethamine 15mg/ml inj. IM ONE (12:30)
[2019-01-13] MEDS ORDERED: METH-360 PO (12:32)
== END 2019-01-13 13:15 | disposition home or self-care (01) ==
LOC: MERGE 10:53 → ER 10:53
DX: M54.5 Low back pain (principal); G89.29 Other chronic pain; Z98.890 Other specified postprocedural states; Z88.0 Allergy status to penicillin; Z88.5 Allergy status to narcotic agent; Z88.6 Allergy status to analgesic agent; Z79.82 Long term (current) use of aspirin; Z79.84 Long term (current) use of oral hypoglycemic drugs; Z79.899 Other long term (current) drug therapy
CPT/HCPCS: 96372; 99283; J1885

== ENCOUNTER 2019-05-24 19:58 | Emergency (ER) | payer BC, OTHER ==
[~2019-05-24] VITALS: Ht 157.5 cm; Wt 81.0 kg
[~2019-05-24 19:58] MED LIST changes: +METH-360 PO
[2019-05-24] MEDS ORDERED: normal saline 1000ML IV soln IVB ONE (20:10)
[2019-05-24] MEDS ORDERED: insulin regular, human U-100 3ml vial - multi-dose IV ONE (20:35)
[2019-05-24] MEDS ORDERED: insulin regular, human 10 units/0.1 ml syringe IV ONE (20:35)
[2019-05-24 20:36] LABS: CLARITY,URINE CLEAR (Clear); COLOR,URINE STRAW (Yellow); GLUCOSE, URINE >=1000 mg/dl (Neg); KETONES,URINE NEGATIVE (Neg); LEUKOCYTE ESTERASE ,URINE NEGATIVE (Neg); NITRITES, URINE NEGATIVE (Neg); OCCULT BLOOD,URINE NEGATIVE (Neg); PROTEIN,URINE NEGATIVE (Neg); UROBILINOGEN,URINE 0.2 E.U/dL (0.2-1.0)
[2019-05-24 20:38] LABS: BASOPHILS # (AUTO) 0.1 X10'3 (0-0.2); BASOPHILS % (AUTO) 1.3 % (0-1); EOSINOPHILS # (AUTO) 0.2 X10'3 (0-0.9); EOSINOPHILS % (AUTO) 2.5 % (0-6); HEMATOCRIT 34.4 % (35.0-45.0); HEMOGLOBIN 11.3 g/dl (12.0-16.0); LYMPHOCYTES # (AUTO) 1.7 X10'3 (1.1-4.8); LYMPHOCYTES % (AUTO) 24.5 % (21-51); MEAN CORPUSCULAR HEMOGLOBIN 25.9 PG (27.0-31.0); MEAN CORPUSCULAR HGB CONC 32.8 g/dL (33.0-36.5); MEAN CORPUSCULAR VOLUME 79.1 FL (78-98); MEAN PLATELET VOLUME 8.1 FL (7.4-10.4); MONOCYTES # (AUTO) 0.5 X10'3 (0-0.9); MONOCYTES % (AUTO) 7.2 % (2-12); NEUTROPHILS # (AUTO) 4.6 X10'3 (1.8-7.7); NEUTROPHILS % (AUTO) 64.5 % (42-75); PLATELET COUNT 322 X10'3 (140-440); RED BLOOD COUNT 4.34 X10'6 (4.20-5.60); RED CELL DISTRIBUTION WIDTH 16.3 % (11.5-14.5); WHITE BLOOD COUNT 7.1 X10'3 (4.5-11.0)
[2019-05-24 20:43] LABS: UA COLLECTION TYPE CLN CATCH MIDSTREAM
[2019-05-24 20:45] LABS: BACTERIA,URINE NONE SEEN /HPF (Neg); RBC,URINE 0-2 /HPF (0-2); SQUAMOUS EPITHELIAL CELL,UR NONE SEEN /LPF (FEW); WBC,URINE 0-4 /HPF (0-4)
[2019-05-24 20:53] LABS: ALANINE AMINOTRANSFERASE 26 U/L (12-78); ALBUMIN 3.5 G/DL (3.4-5.0); ALBUMIN/GLOBULIN RATIO 0.8 (1.1-1.5); ALKALINE PHOSPHATASE 90 IU/L (46-116); ANION GAP 6 (8-16); ASPARTATE AMINO TRANSFERASE 14 U/L (10-37); BILIRUBIN,TOTAL 0.1 MG/DL (0.1-1.0); BLOOD UREA NITROGEN 13 MG/DL (7-18); CALCIUM 8.6 MG/DL (8.5-10.1); CHLORIDE 101 MMOL/L (99-107); CREATININE 0.93 MG/DL (0.40-0.90); POTASSIUM 4.4 MMOL/L (3.5-5.1); SODIUM 134 MMOL/L (135-145); TOTAL CARBON DIOXIDE 26.7 MMOL/L (24-32); TOTAL PROTEIN 7.7 G/DL (6.4-8.2); eGFR 61 ML/MIN
[2019-05-24 20:57] LABS: GLUCOSE 572 MG/DL (70-104)
[2019-05-24 22:10] VITALS: BP 172/87
== END 2019-05-24 22:30 | disposition home or self-care (01) ==
LOC: ER 19:58
DX: E11.65 Type 2 diabetes mellitus with hyperglycemia (principal); R51 Headache; G89.29 Other chronic pain; Z98.890 Other specified postprocedural states; Z88.0 Allergy status to penicillin; Z88.5 Allergy status to narcotic agent; Z79.82 Long term (current) use of aspirin; Z79.899 Other long term (current) drug therapy
CPT/HCPCS: 36415; 80053; 81001; 82948; 85025; 96361; 96374; 99283; J1815; J7030

== ENCOUNTER 2019-08-06 21:49 | Emergency (ER) | payer BC ==
[~2019-08-06] VITALS: Ht 157.5 cm; Wt 86.4 kg
[2019-08-06 22:45] LABS: BASOPHILS % (AUTO) 0.6 % (0-1); EOSINOPHILS # (AUTO) 0.1 X10'3 (0-0.9); HEMATOCRIT 31.6 % (35.0-45.0); LYMPHOCYTES # (AUTO) 1.4 X10'3 (1.1-4.8); LYMPHOCYTES % (AUTO) 22.8 % (21-51); MEAN CORPUSCULAR HEMOGLOBIN 24.4 PG (27.0-31.0); MEAN CORPUSCULAR HGB CONC 31.5 g/dL (33.0-36.5); MEAN CORPUSCULAR VOLUME 77.3 FL (78-98); MEAN PLATELET VOLUME 8.9 FL (7.4-10.4); MONOCYTES # (AUTO) 0.5 X10'3 (0-0.9); MONOCYTES % (AUTO) 8.7 % (2-12); NEUTROPHILS % (AUTO) 65.9 % (42-75); PLATELET COUNT 294 X10'3 (140-440); RED BLOOD COUNT 4.09 X10'6 (4.20-5.60); RED CELL DISTRIBUTION WIDTH 17.3 % (11.5-14.5)
[2019-08-06 23:05] LABS: ALANINE AMINOTRANSFERASE 40 U/L (12-78); ALBUMIN 3.5 G/DL (3.4-5.0); ALBUMIN/GLOBULIN RATIO 0.9 (1.1-1.5); ALKALINE PHOSPHATASE 89 IU/L (46-116); ANION GAP 10 (8-16); ASPARTATE AMINO TRANSFERASE 25 U/L (10-37); BILIRUBIN,TOTAL 0.3 MG/DL (0.1-1.0); BLOOD UREA NITROGEN 14 MG/DL (7-18); BUN/CREATININE RATIO 15.1 (6.6-38.0); CALCIUM 8.5 MG/DL (8.5-10.1); CHLORIDE 103 MMOL/L (99-107); CREATININE 0.93 MG/DL (0.40-0.90); POTASSIUM 4.5 MMOL/L (3.5-5.1); SODIUM 140 MMOL/L (135-145); TOTAL CARBON DIOXIDE 26.7 MMOL/L (24-32); TOTAL PROTEIN 7.4 G/DL (6.4-8.2); eGFR 61 ML/MIN
[2019-08-06 23:12] LABS: GLUCOSE 498 MG/DL (70-104)
--- NOTE | 2019-08-06 23:14 | NUR ---
notified MD of blood glucose of 497
[2019-08-06] MEDS ORDERED: FURO-150 PO (23:19)
[2019-08-06] MEDS ORDERED: furosemide 10 MG/1 ML 10ml inj IV ONE ×4 (23:20→23:40)
[2019-08-06] MEDS ORDERED: furosemide 40mg/4ml inj IV ONE (23:25)
[2019-08-06 23:57] VITALS: BP 155/73
== END 2019-08-07 | disposition home or self-care (01) ==
LOC: ER 21:49
DX: R60.0 Localized edema (principal); R06.02 Shortness of breath; M79.89 Other specified soft tissue disorders; I25.10 Atherosclerotic heart disease of native coronary artery without angina pectoris; I25.2 Old myocardial infarction; E11.9 Type 2 diabetes mellitus without complications; G89.29 Other chronic pain; Z98.890 Other specified postprocedural states; Z88.5 Allergy status to narcotic agent; Z88.0 Allergy status to penicillin; Z88.8 Allergy status to other drugs, medicaments and biological substances; Z79.82 Long term (current) use of aspirin; Z79.899 Other long term (current) drug therapy
CPT/HCPCS: 36415; 71045; 80053; 83880; 84484; 85025; 93005; 96374; 99285; J1940